=== PATIENT | female | born 1960 | race American Indian/Alaskan Native ===

== ENCOUNTER 2021-08-20 15:50 | Emergency (ER) | payer BC, MEDICAID ==
[~2021-08-20] VITALS: Ht 147.3 cm; Wt 92.1 kg
[2021-08-20] MEDS ORDERED: TETANUS-DIPTH-ACEL PERTUSSIS 0.5ML SYR Tdap IM ONE (17:45)
[2021-08-20] MEDS ORDERED: IBUP800T27 PO (17:50)
[2021-08-20] MEDS ORDERED: AMOX-277 PO (17:50)
[2021-08-20 18:02] VITALS: BP 155/75
== END 2021-08-20 18:47 | disposition home or self-care (01) ==
LOC: ER 15:51
DX: S61.412A Laceration without foreign body of left hand, initial encounter (principal); W26.8XXA Contact with other sharp object(s), not elsewhere classified, initial encounter; Y93.89 Activity, other specified; Y92.89 Other specified places as the place of occurrence of the external cause; Y99.8 Other external cause status
CPT/HCPCS: 12002; 90471; 90715